=== PATIENT | female | born 1940 | race Caucasian/White ===

== ENCOUNTER 2016-08-07 07:53 | Outpatient (CLI) | payer OTHER ==
--- NOTE | 2016-08-08 07:32 | MAMMO ---
EXAM: Digital screening mammogram HISTORY: Screening mammogram COMPARISON: It mammogram 08/02/2015 and 09/01/2013 FINDINGS: Bilateral CC and MLO views of the breasts were performed digitally and demonstrate fatty breast density (up to 25%). There is no abnormal nodule or calcification. Peripherally calcified oil cyst is noted in the right breast. There is no significant interval change. IMPRESSION: No new or suspicious calcification or nodule RECOMMENDATION: Annual screening mammogram BIRADS category I: Negative
== END 2016-08-07 07:54 | disposition home or self-care (01) ==
LOC: RAD 07:53
PROVIDERS: ATTEND Family Medicine
DX: Z12.31 Encounter for screening mammogram for malignant neoplasm of breast (principal)

== ENCOUNTER 2017-08-07 10:17 | Outpatient (CLI) | payer OTHER | END 2017-08-07 10:18 | disposition home or self-care (01) | LOC: RAD 10:17 | PROVIDERS: ATTEND Family Medicine | DX: Z12.31 Encounter for screening mammogram for malignant neoplasm of breast (principal) | CPT/HCPCS: 77067 ==

== ENCOUNTER 2018-08-13 13:30 | Outpatient (CLI) | payer OTHER ==
--- NOTE | 2018-08-15 10:34 | MAMMO ---
EXAM: Digital screening mammogram with Tomosynthesis HISTORY: Screening COMPARISON: 08/07/2017 FINDINGS: Digital MLO and CC views of the right and left breast were performed. Tomosynthesis was performed. Computer aided detection utilized. There are scattered fibroglandular densities. There i s no evidence for mass, asymmetry, distortion, or suspicious calcifications in either breast. IMPRESSION: 1. No evidence of malignancy in the right or left breast. 2. Annual screening mammogram is recommended in one year. BIRADS category 1, negative examination
== END 2018-08-13 13:31 | disposition home or self-care (01) ==
LOC: RAD 13:30
PROVIDERS: ATTEND Family Medicine
DX: Z12.31 Encounter for screening mammogram for malignant neoplasm of breast (principal)

== ENCOUNTER 2024-11-10 10:34 | Inpatient (IN) ==
[2024-11-10 10:48] VITALS: BMI 28.8
--- NOTE | 2024-11-10 10:49 | ED.PDOC ---
General HPI ED Provider: Dr. DONOVAN EMANUEL MD Chief Complaint: Urinary Problem Stated Complaint: Patient is a 83-year-old female that reported to the emergency department for dysuria. Patient was seen on 10/28/2024 and given cephalexin for a UTI. Patient stated that since that time she thought she started to get better however she started to have increased frequency and dysuria. Patient stated that there has been no hematuria that she knows of. Patient stated that she has also had a fever. She also stated that she just did not feel well due to these urinary problems. Patient stated that she also had a flu shot last week. Patient stated that and route to the emergency department EMS found her to have a temperature of 100.8 Fahrenheit. Patient also stated that she had some nausea. Patient stated that she had an episode of diarrhea. Patient denies any hematochezia, hemoptysis, or melenic stools. Patient denies any shortness of breath, cough, vomiting, headache, or any other acute symptoms not currently mentioned in his HPI previously. Patient's vital signs are currently stable. Patient's GCS is 15. Time Seen by Provider: 11/10/24 10:37 Mode of Arrival: Ambulance Information Source: Patient and EMT Exam Limitations: No limitations Primary Care Provider: BABATUNDE RICHARDSON Nursing and Triage Documentation Reviewed and Agree: Yes Opioid Naive vs. Tolerant What is Opioid Naive?: *Opioid Naive implies the patient is not already taking opioids or not chronically receiving opioids on a daily basis. *PRN dosing is not "usually" associated with tolerance. *Patients are at higher risk of over-sedation and aspiration. What is Opioid Tolerant?: *Opioid Tolerance implies less than the expected response to an opioid. *Acquired tolerance is defined by the patient taking 60mg of oral morphine daily (or equianalgesic dose of another opioid) for 1 week or more. *Often associated with chronic pain. *May take more than usual dose to achieve desired pain control. Review of Systems Review Of Systems Constitutional: Reports No symptoms, Fever and Weakness : Reports Dysuria, Frequency and Pain (Suprapubic tenderness) All Other Systems: Reviewed and Negative PFSH Female Reproductive History Menstrual Hx Hysterectomy: No Hx Tubal Ligation: No Physical Exam Physical Exam Appearance: Reports Well-appearing, No pain distress and Well-nourished Ill-appearing: None Pain Distress: None Eyes: Reports JERE and EOMI ENT: Reports Nose normal and Oropharynx normal Respiratory: Reports Airway patent, Breath sounds clear, Breath sounds equal and Respirations nonlabored Cardiovascular: Reports RRR and Pulses normal GI/: Reports Soft, Bowel sounds normal and Tender (Patient had mild suprapubic tenderness to palpation. Otherwise the rest the abdomen had no tenderness to palpation. Gilmore sign negative, rebound tenderness negative, McBurney point negative.) Musculoskeletal: Reports Normal strength and ROM intact Skin: Reports Warm, Dry and Normal color Neurological: Reports Sensation intact, Motor intact, Alert and Oriented Psychiatric: Reports Affect appropriate and Mood appropriate Physician Progress Note Physician Progress Note: Patient is a 83-year-old female that reported to the emergency department for dysuria. Patient was seen on 10/28/2024 and given cephalexin for a UTI. Patient stated that since that time she thought she started to get better however she started to have increased frequency and dysuria. Patient stated that there has been no hematuria that she knows of. Patient stated that she has also had a fever. She also stated that she just did not feel well due to these urinary problems. Patient stated that she also had a flu shot last week. Patient stated that and route to the emergency department EMS found her to have a temperature of 100.8 Fahrenheit. Patient also stated that she had some nausea. Patient stated that she had an episode of diarrhea. Patient denies any hematochezia, hemoptysis, or melenic stools. Patient denies any shortness of breath, cough, vomiting, headache, or any other acute symptoms not currently mentioned in his HPI previously. Patient's vital signs are currently stable. Patient's GCS is 15. - Will give patient IV normal saline 1 L bolus for dehydration. - Will give the patient IV ondansetron 4 mg once for nausea. - Will order baseline labs and a urinalysis. - Will order blood cultures and lactic acid. - Patient has a large nitrite and 3+ leukocyte Estrace positive UTI found on UA. Will give the patient IV Zosyn 3.75 g. - Due to patient failing outpatient treatment for UTI will contact hospitalist for inpatient admission for urinary tract infection. - EKG shows normal sinus rhythm with minimal voltage criteria for left ventricular hypertrophy. Ventricular rate 70 bpm. Normal axis is noted. No acute STEMI. EKG interpreted by ER physician. - Spoke to the hospitalist Jamel at [facility] and discussed patient's failed outpatient treatment for UTI and current 3+ leukocyte esterase and nitrite positive UTI. Discussed current treatment Zosyn. Also discussed that the patient has had an episode or 2 of diarrhea yesterday and had been on antibiotics previously so I did order C. difficile and other stool cultures just in case the patient is able to give a sample of her diarrhea. Jamel stated that she would check up on these labs however all the rest of the labs are back and patient is ready for observational admission. Hospitalist has agreed to observational admission. Patient is stable at time of admission. Course Course 11/10/24 10:53 11/10/24 10:53 Orders, Labs, Meds: Lab Review 11/10/24 11/10/24 11/10/24 10:45 10:50 10:53 WBC 13.39 H RBC 4.02 L Hgb 12.8 Hct 39.2 MCV 97.5 MCH 31.8 H MCHC 32.7 RDW Coeff of Cindy 12.7 Plt Count 278 Immature Gran % (Auto) 0.3 Neut % (Auto) 90.4 H Lymph % (Auto) 2.6 L [place] % (Auto) 6.4 Eos % (Auto) 0.1 Baso % (Auto) 0.2 Neut # (Auto) 12.1 H Lymph # (Auto) 0.4 L [place] # (Auto) 0.9 Eos # (Auto) 0.0 Baso # (Auto) 0.0 Immature Gran # (Auto) 0.0 Hypochromasia 1+ Anisocytosis 2+ Microcytosis 1+ Shannon Cells 1+ Acanthocytes (Spur) 1+ Sodium 136.9 Potassium 3.54 Chloride 103.8 Carbon Dioxide 26.1 Anion Gap 10.54 BUN 16.4 Creatinine 0.73 Estimated GFR (MDRD) 77.00 BUN/Creatinine Ratio 22.46 Glucose 126.9 H Lactic Acid 1.05 Calcium 9.18 Magnesium 1.75 Total Bilirubin 1.79 H AST 29.7 ALT 18.4 Alkaline Phosphatase 68.9 Troponin I Pending Total Protein 6.51 Albumin 3.96 Globulin 2.55 Albumin/Globulin Ratio 1.55 Urine Color Yellow Urine Clarity Turbid Urine pH 7.0 Ur Specific [place] 1.015 Urine Protein Negative Urine Glucose (UA) Negative Urine Ketones Trace H Urine Blood Trace-intact H Urine Nitrite Positive H Urine Bilirubin Negative Urine Urobilinogen 0.2 Ur Leukocyte Esterase 3+ H Urine Microscopic RBC 2-5 Urine Microscopic WBC Tntc Ur Squamous Epith Cells Not Reportable Urine Bacteria 4+ Influ A Molecular Assay Negative by naat Influ B Molecular Assay Negative by naat SARS CoV-2 RNA Rapid CHACORTA Negative Orders Category Date Time Status EKG-(ED & IP/OBS ONLY) Stat CARDIO 11/10/24 10:37 Ordered IV [ED IV/MEDIPORT/POWERPORT] .ONCE EMERGENCY 11/10/24 10:37 Active BLOOD CULTURE (ED ONLY) Stat LAB 11/10/24 10:53 Received CBC W/ AUTO DIFF Stat LAB 11/10/24 10:53 Completed CDIFF [C. DIFFICILE] ONCE LAB 11/10/24 10:44 Uncollected CMP [COMPREHENSIVE METABOLIC PANEL] Stat LAB 11/10/24 10:53 Results COVID [SARS COV-2 RNA RAPID CHACORTA] Stat LAB 11/10/24 10:50 Completed FLU A & B MOLECULAR [FLU A/B MOLECULAR] Stat LAB 11/10/24 10:50 Completed LACTIC ACID Stat LAB 11/10/24 10:53 Completed MAGNESIUM Stat LAB 11/10/24 10:53 Results OVA AND PARASITES EXAM Stat LAB 11/10/24 10:45 Uncollected RBC MORPHOLOGY Stat LAB 11/10/24 10:53 Completed STOOL CULTURE Stat LAB 11/10/24 Uncollected TROPONIN I Stat LAB 11/10/24 10:53 Results URINALYSIS C & S IF INDICATED Stat LAB 11/10/24 10:45 Completed URINE CULTURE Stat LAB 11/10/24 10:45 Received 0.9 % Sodium Chloride [Saline Flush] Meds 11/10/24 10:37 Active 1 syr IVF PRN PRN Acetaminophen [Tylenol] Meds 11/10/24 11:22 Discontinued 1,000 mg PO ONCE STA Ondansetron [Zofran Odt] Meds 11/10/24 10:49 Discontinued 4 mg PO ONCE STA Piperacillin Sodium/Tazobactam [Zosyn 3.375 gm] 3.375 Meds 11/10/24 11:02 Active gm 0.9 % Sodium Chloride [Sodium Chloride 100Ml] 100 ml IV ONCE Sodium Chloride 0.9% [Sodium Chloride] 1,000 ml Meds 11/10/24 10:37 Active IV BOLUS Medications Generic Name Dose Route Start Last Admin Trade Name Freq PRN Reason Stop Dose Admin Sodium Chloride 1,000 mls @ 1,000 mls/hr 11/10/24 10:37 11/10/24 10:59 Sodium Chloride IV 11/10/24 11:36 1,000 mls/hr BOLUS ONE Administration Piperacillin Sod/Tazobactam 100 mls @ 200 mls/hr 11/10/24 11:02 11/10/24 11:07 Sod 3.375 gm/ Sodium Chloride IV 11/10/24 11:31 200 mls/hr ONCE ONE Administration Sodium Chloride 1 syr 11/10/24 10:37 0.9% Sodium Chloride 10 Ml Disp.Syrin IVF PRN PRN To flush IV Discontinued Medications Generic Name Dose Route Start Last Admin Trade Name Freq PRN Reason Stop Dose Admin Acetaminophen 1,000 mg 11/10/24 11:22 Acetaminophen 500 Mg Tablet PO 11/10/24 11:23 ONCE STA Ondansetron HCl 4 mg 11/10/24 10:49 11/10/24 10:59 Ondansetron Hcl 4 Mg Tab.Rapdis PO 11/10/24 10:50 4 mg ONCE STA Administration Vital Signs: Temp Pulse Resp BP Pulse Ox 11/10/24 10:37 100.5 F H 85 20 164/84 H 95 Discharge Plan Discharge Patient Disposition: PLACED OBSERVATION Discharge Problem: Generalized weakness, Intractable nausea UTI (urinary tract infection) Qualifiers: Urinary tract infection type: acute cystitis Hematuria presence: with hematuria Qualified Code(s): N30.01 - Acute cystitis with hematuria Did you review [place] [facility] [facility] for ALL controlled substances?: Not Applicable ED Provider: DONOVAN EMANUEL Condition: Stable
[2024-11-10 10:55] LABS: GLUCOSE, URINE (UA) Negative (NEGATIVE); LEUKOCYTE ESTERASE ,URINE 3+ (NEGATIVE); URINE, BLOOD Trace-intact (NEGATIVE)
[2024-11-10 10:57] LABS: IMMATURE GRANULOCYTE # (AUTO) 0.0 (0.0-1.0); IMMATURE GRANULOCYTE % (AUTO) 0.3 % (0.0-5.0); RDW COEFFICIENT OF VARIATION 12.7 % (11.6-14.8)
[2024-11-10] MEDS: SODIUM CHLORIDE 1,000 ML IV ONE (10:59)
[2024-11-10] MEDS: ZOFRAN ODT PO STA (10:59)
[2024-11-10 11:01] LABS: URINE WBC, MICROSCOPIC TNTC (0-2)
[2024-11-10] MEDS: ZOSYN 3.375 GM 3.375 GM in SODIUM CHLORIDE 100ML 100 ML IV ONE (11:07)
[2024-11-10 11:12] LABS: CREATININE 0.73 mg/dL (0.60-1.30)
[2024-11-10 11:19] LABS: MOLECULAR FLU A NEGATIVE BY NAAT (NEGATIVE); MOLECULAR FLU B NEGATIVE BY NAAT (NEGATIVE); SARS COV-2 RNA RAPID NAAT NEGATIVE (NEGATIVE)
[2024-11-10] MEDS: TYLENOL PO STA (11:32)
[2024-11-10] MEDS ORDERED: ZOFRAN SDV IVP PRN (13:28)
--- NOTE | 2024-11-10 13:31 | PCM ---
Date of Service Date Seen by Provider: 11/10/24 Time Seen by Provider: Admit Day/Time Admission Date: 11/10/24 Admission Time: 11:20 Reason for Admission Chief Complaint: UTI Hospital Provider Hospital Provider: NORA TORRES, [facility] [place] Primary Care Physician Primary Care Physician: BABATUNDE RICHARDSON History of Present Illness History of Present Illness: 83 yo female with pmh of htn, hld, chronic pain, and nephrectomy presented to the ER with complaints of UTI. Reports she was treated for UTI approximately 2 weeks ago with keflex. Completed course of treatment and did not feel better. Had fever with initial UTI that resolved within 2 days of taking the antibiotic. Fever started again today, has been nauseated, and has been incontinent which is not normal for her. UA in ER suspicious for UTI. White count of 13 and had fever of 100.5. She was given 1L of fluids, zosyn, and zofran. Admitted to med/surg observation. Case Discussed With Case Discussed With: Patient's case was discussed with the ER Physicians, Dr. Jain. [facility] Medical History (Updated 11/10/24 @ 13:34 by NORA TORRES) Hyperlipidemia E78.5 - Hyperlipidemia, unspecified (ICD-10) Hypertension I10 - Essential (primary) hypertension (ICD-10) Surgical History H/O right nephrectomy 2008 @ [place]. Z90.5 - Acquired absence of kidney (ICD-10) Family History Other No known health problems Social History Smoking and tobacco status: Never smoker Allergies Allergies Allergy/AdvReac Type Severity Reaction Status Date / Time hydromorphone HCl (From AdvReac Verified 11/10/24 10:48 Dilaudid) morphine AdvReac Verified 11/10/24 10:48 Current Medications Home Medications Acetaminophen (Acetaminophen 325 Mg Tablet) 650 mg PO Q4H PRN PRN Reason: Mild Pain Amlodipine Besylate (Amlodipine Besylate 5 Mg Tablet) 5 mg PO DAILY [facility] Clonidine (Clonidine Hcl 0.1 Mg Tablet) 0.1 mg PO BID [facility] CEFTRIAXONE/D5W 1 GM PREMIX (Rocephin 1 Gm/50 Ml D5w) 1 gm in 50 mls @ 100 mls/hr IV DAILY [facility] Stop: 11/13/24 12:59 Last Admin: 11/10/24 13:41 Dose: 100 mls/hr Losartan Potassium (Losartan Potassium 25 Mg Tablet) 25 mg PO DAILY [facility] Metoprolol Tartrate (Metoprolol Tartrate 25 Mg Tablet) 25 mg PO DAILY [facility] Multivitamins (Multivitamin 1 Tab) 1 tab PO DAILY [facility] Ondansetron HCl (Ondansetron Hcl/Pf 4 Mg/2 Ml Sdv) 4 mg IVP Q6H PRN PRN Reason: Nausea / Vomiting Pravastatin Sodium (Pravastatin Sodium 20 Mg Tablet) 20 mg PO DAILY [facility] Saccharomyces Boulardii (Saccharomyces Boulardii 250 Mg Capsule) 250 mg PO BID [facility] Sodium Chloride (0.9% Sodium Chloride 10 Ml Disp.Syrin) 1 syr IVF PRN PRN PRN Reason: To flush IV Tramadol HCl (Tramadol Hcl 50 Mg Tablet) 50 mg PO 2XD PRN PRN Reason: Pain amlodipine 5 mg tablet 1 tab PO DAILY 07/21/13 [History Confirmed 11/10/24] clonidine HCl 0.1 mg tablet,extended release,12 hr 1 tab PO BID 07/21/13 [History Confirmed 11/10/24] metoprolol tartrate 50 mg tablet 25 mg PO DAILY 07/21/13 [History Confirmed 11/10/24] pravastatin 20 mg tablet 1 tab PO DAILY 07/21/13 [History Confirmed 11/10/24] losartan 25 mg tablet 25 mg PO DAILY 10/28/24 [History Confirmed 11/10/24] multivitamin (Daily Multi-Vitamin tablet) 1 tab PO DAILY 10/28/24 [History Confirmed 11/10/24] ondansetron 4 mg disintegrating tablet 4 mg PO Q6H PRN nausea and vomiting #30 tabs 10/28/24 [Rx Confirmed 11/10/24] tramadol 50 mg tablet 50 mg PO 2XD PRN pain 10/28/24 [History Confirmed 11/10/24] calcium carb-ergocalciferol (vit D2) 600 mg calcium-200 unit tablet 1 tab PO DAILY 11/10/24 [History Confirmed 11/10/24] Opioid Naive vs. Tolerant Does Patient Take Opioids?: Yes Is Patient Opioid Naive?: No What is Opioid Naive?: *Opioid Naive implies the patient is not already taking opioids or not chronically receiving opioids on a daily basis. *PRN dosing is not "usually" associated with tolerance. *Patients are at higher risk of over-sedation and aspiration. Is Patient Opioid Tolerant?: No What is Opioid Tolerant?: *Opioid Tolerance implies less than the expected response to an opioid. *Acquired tolerance is defined by the patient taking 60mg of oral morphine daily (or equianalgesic dose of another opioid) for 1 week or more. *Often associated with chronic pain. *May take more than usual dose to achieve desired pain control. Review of Systems Constitutional: Reports Fever and Weakness Head: Reports Normocephalic Eyes: Reports No symptoms Ears: Reports No symptoms Nose: Reports No symptoms Mouth: Reports No symptoms Throat: Reports No symptoms Cardiovascular: Reports No symptoms Respiratory: Reports No symptoms Gastrointestinal: Reports Nausea Genitourinary: Reports Incontinence; Denies Dysuria, Frequency, Nocturia, Abnormal Bleeding or Pelvic Pain Musculoskeletal: Reports No symptoms Endocrine: Reports No symptoms Hematology: Reports No symptoms Immunology: Reports No symptoms Neurological: Reports No symptoms Psychiatric: Reports No symptoms Physical examination Most Recent Vital Signs: Most Recent Vital Signs Temperature 98.1 F 11/10/24 12:23 Temperature Source Axillary 11/10/24 10:37 Pulse Rate 64 11/10/24 12:23 Respiratory Rate 16 11/10/24 12:23 Blood Pressure 164/84 H 11/10/24 10:37 Blood Pressure Right Arm 135/51 11/10/24 12:23 Blood Pressure Position Supine 11/10/24 12:23 O2 Sat by Pulse Oximetry 94 L 11/10/24 12:23 Oxygen Delivery Method Room Air 11/10/24 12:23 Height 5 ft 4 in 11/10/24 12:23 Weight 76.1 kg 11/10/24 12:23 Appearance: Positive Alert and Oriented x3 Skin: Positive Rashes (petechial rash to posterior L lower leg), Warm and Good Color HEENT: Positive Normocephalic and PERRLA Neck: Positive Supple and Midline Trachea Chest/Lungs: Positive Symmetrical With Equal Breath Sounds, Clear to Auscultation Bilaterally and Good Air Movement all 4 Lung Haile; Negative Rales, Rhonci or Wheezes Heart: Positive RRR and Pulses Normal GI/: Positive Soft, Nontender, Bowel Sounds Normal and No Distention Musculoskeletal: Positive Not Examined Extremities: Positive Edema (trace to BLE), Intact Peripheral Pulses, Stable Joints Without Laxity and Good ROM in All Joints Neurological: Positive Sensation Intact, Motor intact, Reflexes Intact, Alert, Oriented and Muscle Strength 5/5 in Upper and Lower Extremities Bilaterally Labs This Visit Labs This Visit: Labs This Visit 11/10/24 11/10/24 11/10/24 10:45 10:50 10:53 WBC 13.39 H RBC 4.02 L Hgb 12.8 Hct 39.2 MCV 97.5 MCH 31.8 H MCHC 32.7 RDW Coeff of Cindy 12.7 Plt Count 278 Immature Gran % (Auto) 0.3 Neut % (Auto) 90.4 H Lymph % (Auto) 2.6 L [place] % (Auto) 6.4 Eos % (Auto) 0.1 Baso % (Auto) 0.2 Neut # (Auto) 12.1 H Lymph # (Auto) 0.4 L [place] # (Auto) 0.9 Eos # (Auto) 0.0 Baso # (Auto) 0.0 Immature Gran # (Auto) 0.0 Hypochromasia 1+ Anisocytosis 2+ Microcytosis 1+ Shannon Cells 1+ Acanthocytes (Spur) 1+ Sodium 136.9 Potassium 3.54 Chloride 103.8 Carbon Dioxide 26.1 Anion Gap 10.54 BUN 16.4 Creatinine 0.73 Estimated GFR (MDRD) 77.00 BUN/Creatinine Ratio 22.46 Glucose 126.9 H Lactic Acid 1.05 Calcium 9.18 Magnesium 1.75 Total Bilirubin 1.79 H AST 29.7 ALT 18.4 Alkaline Phosphatase 68.9 Troponin I < 0.012 Total Protein 6.51 Albumin 3.96 Globulin 2.55 Albumin/Globulin Ratio 1.55 Urine Color Yellow Urine Clarity Turbid Urine pH 7.0 Ur Specific [place] 1.015 Urine Protein Negative Urine Glucose (UA) Negative Urine Ketones Trace H Urine Blood Trace-intact H Urine Nitrite Positive H Urine Bilirubin Negative Urine Urobilinogen 0.2 Ur Leukocyte Esterase 3+ H Urine Microscopic RBC 2-5 Urine Microscopic WBC Tntc Ur Squamous Epith Cells Not Reportable Urine Bacteria 4+ Influ A Molecular Assay Negative by naat Influ B Molecular Assay Negative by naat SARS CoV-2 RNA Rapid CHACORTA Negative Review Statement Review Statement: I have independently reviewed and interpreted the labs/EKGs/imaging that were ordered by the ER provider. I have reviewed all outside records that are available currently in our EMR including imaging/notes/labs from previous visits. Plan Plan: 1. UTI, failed outpatient antibiotics - diagnosed with UTI on 10/28 with urine culture growth of E.Coli. Completed course of keflex - sensitive on culture. Will start rocephin and follow current culture 2. HTN - chronic, continue home medications 3. HLD - chronic, continue home medications DVT Prophylaxis: Ambulation Time Spent: Greater than 80 minutes spent with patient, 50% of the time spent with this patient was devoted to counseling and coordination of care. [facility] minutes spent discussing advance care planning. Disposition: Admit to: Med/Surg Observation DNI, CPR only Discussed Plan of Care with Dr. Alvaro Marks Medications Medication Orders: Medications Ordered Category Date Time Status 0.9 % Sodium Chloride [Saline Flush] Meds 11/10/24 10:37 Active 1 syr IVF PRN PRN Acetaminophen [Tylenol] Meds 11/10/24 12:35 Active 650 mg PO Q4H PRN Amlodipine Besylate [Norvasc] Meds 11/11/24 09:00 Ordered 5 mg PO DAILY Ceftriaxone/D5w 1 gm Premix [Rocephin 1 gm/50 ml D5w] Meds 11/10/24 13:00 Active 1 gm in 50 ml IV DAILY Losartan Potassium [Cozaar] Meds 11/11/24 09:00 Ordered 25 mg PO DAILY Metoprolol Tartrate [Lopressor] Meds 11/11/24 09:00 Ordered 25 mg PO DAILY Multivitamin [Multivitamin Tablet] Meds 11/11/24 09:00 Ordered 1 tab PO DAILY Ondansetron HCl/Pf [Zofran Sdv] Meds 11/10/24 13:28 Ordered 4 mg IVP Q6H PRN Pravastatin Sodium [Pravachol] Meds 11/11/24 09:00 Ordered 20 mg PO DAILY Saccharomyces Boulardii [Florastor] Meds 11/10/24 21:00 Active 250 mg PO BID Tramadol HCl [Ultram] Meds 11/10/24 13:29 Ordered 50 mg PO 2XD PRN PAIN Pain clonidine HCl Meds 11/10/24 21:00 Ordered 1 tab PO BID
[2024-11-10] MEDS: ROCEPHIN 1 GM/50 ML D5W 1 GM/50 ML BAG IV SCH (13:41)
[2024-11-10] MEDS: FLORASTOR PO SCH (21:02)
[2024-11-10] MEDS: CATAPRES PO SCH (21:02)
[2024-11-10] MEDS: ULTRAM PO PRN (22:06)
[2024-11-11 05:17] LABS: IMMATURE GRANULOCYTE # (AUTO) 0.0 (0.0-1.0); IMMATURE GRANULOCYTE % (AUTO) 0.2 % (0.0-5.0); RDW COEFFICIENT OF VARIATION 12.9 % (11.6-14.8)
[2024-11-11 05:40] LABS: CREATININE 0.69 mg/dL (0.60-1.30)
[2024-11-11] MEDS: TYLENOL PO PRN (05:49)
[2024-11-11] MEDS: MULTIVITAMIN TABLET PO SCH (08:07)
[2024-11-11] MEDS: K-DUR PO ONE (08:07)
[2024-11-11] MEDS: LOPRESSOR PO SCH (08:07)
[2024-11-11] MEDS: COZAAR PO SCH (08:08)
[2024-11-11] MEDS: NORVASC PO SCH (08:08)
[2024-11-11] MEDS: PRAVACHOL PO SCH (08:08)
[2024-11-11] MEDS ORDERED: LOPRESSOR PO SCH (09:00)
--- NOTE | 2024-11-11 10:42 | PCM.PROG ---
Date/Time Seen Date Seen by Provider: 11/11/24 Time Seen by Provider: 08:45 Provider Provider: NORA TORRES, [facility] Chief Complaint Chief Complaint: UTI Subjective Subjective: Temp 100.2 overnight. Feeling some better today. No further incontinence episodes since starting rocephin. Objective Appearance: Positive No Apparent Distress and Alert and Oriented x3 Chest/Lungs: Positive Symmetrical With Equal Breath Sounds, Clear to Auscultation Bilaterally and Good Air Movement all 4 Lung Haile; Negative Rales, Rhonci or Wheezes Heart: Positive RRR and Pulses Normal GI/: Positive Soft, Nontender, Bowel Sounds Normal and No Distention Musculoskeletal: Positive Not Examined Neurological: Positive Sensation Intact, Motor intact, Reflexes Intact, Alert, Oriented and Muscle Strength 5/5 in Upper and Lower Extremities Bilaterally Additional Findings: Trace edema to BLE, petechial rash improved Vital Signs Vital Signs: Vital Signs: Last 24 Hours 11/10/24 12:23 11/10/24 12:23 11/10/24 13:00 Temperature 98.1 F Temperature Source Pulse Rate 62 Pulse Rate [Apical] 64 Respiratory Rate 18 16 Blood Pressure Blood Pressure Mean Blood Pressure Right Arm 135/51 Blood Pressure Location Blood Pressure Position Supine O2 Sat by Pulse Oximetry 94 L Oxygen Delivery Method Room Air Room Air Room Air Height 5 ft 4 in Weight 76.1 kg Telemetry Type Telemetry Monitoring Telemetry Heart Rate EKG MT Interval EKG QRS Interval Telemetry Strip Reading 11/10/24 13:00 11/10/24 13:36 11/10/24 14:00 Temperature 98.1 F Temperature Source Temporal Artery Scan Pulse Rate 62 Pulse Rate [Apical] Respiratory Rate 18 Blood Pressure 135/51 L Blood Pressure Mean 79 Blood Pressure Right Arm Blood Pressure Location Right Arm Blood Pressure Position Supine O2 Sat by Pulse Oximetry 94 L Oxygen Delivery Method Room Air Room Air Height Weight Telemetry Type Remote Telemetry Telemetry Monitoring Started Telemetry Heart Rate 74 EKG MT Interval 0.18 EKG QRS Interval 0.08 Telemetry Strip Reading NSR 11/10/24 15:00 11/10/24 16:00 11/10/24 17:00 Temperature Temperature Source Pulse Rate Pulse Rate [Apical] Respiratory Rate Blood Pressure Blood Pressure Mean Blood Pressure Right Arm Blood Pressure Location Blood Pressure Position O2 Sat by Pulse Oximetry Oxygen Delivery Method Room Air Room Air Room Air Height Weight Telemetry Type Telemetry Monitoring Telemetry Heart Rate EKG MT Interval EKG QRS Interval Telemetry Strip Reading 11/10/24 17:48 11/10/24 18:00 11/10/24 19:00 Temperature 98.0 F Temperature Source Temporal Artery Scan Pulse Rate 83 Pulse Rate [Apical] Respiratory Rate 16 Blood Pressure 124/66 Blood Pressure Mean 85 Blood Pressure Right Arm Blood Pressure Location Left Arm Blood Pressure Position Supine O2 Sat by Pulse Oximetry 96 Oxygen Delivery Method Room Air Room Air Height Weight Telemetry Type Remote Telemetry Telemetry Monitoring Continues Telemetry Heart Rate 72 EKG MT Interval 0.15 EKG QRS Interval 0.07 Telemetry Strip Reading SR 11/10/24 19:00 11/10/24 20:00 11/10/24 20:00 Temperature Temperature Source Pulse Rate Pulse Rate [Apical] Respiratory Rate Blood Pressure Blood Pressure Mean Blood Pressure Right Arm Blood Pressure Location Blood Pressure Position O2 Sat by Pulse Oximetry Oxygen Delivery Method Room Air Room Air Room Air Height Weight Telemetry Type Telemetry Monitoring Telemetry Heart Rate EKG MT Interval EKG QRS Interval Telemetry Strip Reading 11/10/24 21:00 11/10/24 22:00 11/10/24 22:00 Temperature 100.2 F Temperature Source Temporal Artery Scan Pulse Rate 64 Pulse Rate [Apical] Respiratory Rate 16 Blood Pressure 145/81 H Blood Pressure Mean 102 Blood Pressure Right Arm Blood Pressure Location Right Arm Blood Pressure Position Supine O2 Sat by Pulse Oximetry 96 Oxygen Delivery Method Room Air Room Air Room Air Height Weight Telemetry Type Telemetry Monitoring Telemetry Heart Rate EKG MT Interval EKG QRS Interval Telemetry Strip Reading 11/10/24 23:00 11/11/24 00:00 11/11/24 01:00 Temperature Temperature Source Pulse Rate Pulse Rate [Apical] Respiratory Rate Blood Pressure Blood Pressure Mean Blood Pressure Right Arm Blood Pressure Location Blood Pressure Position O2 Sat by Pulse Oximetry Oxygen Delivery Method Room Air Room Air Room Air Height Weight Telemetry Type Telemetry Monitoring Telemetry Heart Rate EKG MT Interval EKG QRS Interval Telemetry Strip Reading 11/11/24 01:00 11/11/24 02:00 11/11/24 02:00 Temperature 98.8 F Temperature Source Temporal Artery Scan Pulse Rate 54 L Pulse Rate [Apical] Respiratory Rate 16 Blood Pressure 133/66 Blood Pressure Mean 88 Blood Pressure Right Arm Blood Pressure Location Left Arm Blood Pressure Position Supine O2 Sat by Pulse Oximetry 95 Oxygen Delivery Method Room Air Room Air Height Weight Telemetry Type Remote Telemetry Telemetry Monitoring Continues Telemetry Heart Rate 53 L EKG MT Interval 0.16 EKG QRS Interval 0.08 Telemetry Strip Reading SB 11/11/24 03:00 11/11/24 04:00 11/11/24 05:00 Temperature Temperature Source Pulse Rate Pulse Rate [Apical] Respiratory Rate Blood Pressure Blood Pressure Mean Blood Pressure Right Arm Blood Pressure Location Blood Pressure Position O2 Sat by Pulse Oximetry Oxygen Delivery Method Room Air Room Air Room Air Height Weight Telemetry Type Telemetry Monitoring Telemetry Heart Rate EKG MT Interval EKG QRS Interval Telemetry Strip Reading 11/11/24 05:47 11/11/24 06:00 11/11/24 07:00 Temperature 99.1 F Temperature Source Temporal Artery Scan Pulse Rate 56 L Pulse Rate [Apical] Respiratory Rate 16 Blood Pressure 140/63 Blood Pressure Mean 88 Blood Pressure Right Arm Blood Pressure Location Left Arm Blood Pressure Position Supine O2 Sat by Pulse Oximetry 96 Oxygen Delivery Method Room Air Room Air Room Air Height Weight Telemetry Type Telemetry Monitoring Telemetry Heart Rate EKG MT Interval EKG QRS Interval Telemetry Strip Reading 11/11/24 07:00 11/11/24 07:55 11/11/24 08:00 Temperature Temperature Source Pulse Rate Pulse Rate [Apical] Respiratory Rate Blood Pressure Blood Pressure Mean Blood Pressure Right Arm Blood Pressure Location Blood Pressure Position O2 Sat by Pulse Oximetry Oxygen Delivery Method Room Air Room Air Height Weight Telemetry Type Remote Telemetry Telemetry Monitoring Continues Telemetry Heart Rate 43 L EKG MT Interval 0.22 H EKG QRS Interval 0.07 Telemetry Strip Reading SB w/ 1st degree AVB 11/11/24 09:00 11/11/24 10:00 Temperature Temperature Source Pulse Rate Pulse Rate [Apical] Respiratory Rate Blood Pressure Blood Pressure Mean Blood Pressure Right Arm Blood Pressure Location Blood Pressure Position O2 Sat by Pulse Oximetry Oxygen Delivery Method Room Air Room Air Height Weight Telemetry Type Telemetry Monitoring Telemetry Heart Rate EKG MT Interval EKG QRS Interval Telemetry Strip Reading Lab Results Lab Results: Lab Results: Last 24 Hours 11/11/24 11/10/24 11/10/24 05:08 10:53 10:50 WBC 9.26 13.39 H RBC 3.64 L 4.02 L Hgb 11.6 L 12.8 Hct 36.3 L 39.2 MCV 99.7 H 97.5 MCH 31.9 H 31.8 H MCHC 32.0 32.7 RDW Coeff of Cindy 12.9 12.7 Plt Count 185 D 278 Immature Gran % (Auto) 0.2 0.3 Neut % (Auto) 78.5 H 90.4 H Lymph % (Auto) 11.8 2.6 L Alfalfa % (Auto) 9.0 6.4 Eos % (Auto) 0.2 0.1 Baso % (Auto) 0.3 0.2 Neut # (Auto) 7.3 H 12.1 H Lymph # (Auto) 1.1 0.4 L Alfalfa # (Auto) 0.8 0.9 Eos # (Auto) 0.0 0.0 Baso # (Auto) 0.0 0.0 Immature Gran # (Auto) 0.0 0.0 Hypochromasia 1+ Anisocytosis 2+ Microcytosis 1+ Shannon Cells 1+ Acanthocytes (Spur) 1+ Sodium 137.2 136.9 Potassium 3.20 L 3.54 Chloride 104.8 103.8 Carbon Dioxide 30.4 H 26.1 Anion Gap 5.20 10.54 BUN 15.3 16.4 Creatinine 0.69 0.73 Estimated GFR (MDRD) 82.00 77.00 BUN/Creatinine Ratio 22.17 22.46 Glucose 103.9 126.9 H Lactic Acid 1.05 Calcium 8.47 9.18 Magnesium 1.75 Total Bilirubin 0.89 1.79 H AST 26.3 29.7 ALT 18.7 18.4 Alkaline Phosphatase 56.0 68.9 Troponin I < 0.012 Total Protein 5.60 L 6.51 Albumin 3.25 L 3.96 Globulin 2.35 2.55 Albumin/Globulin Ratio 1.38 1.55 Urine Color Urine Clarity Urine pH Ur Specific [place] Urine Protein Urine Glucose (UA) Urine Ketones Urine Blood Urine Nitrite Urine Bilirubin Urine Urobilinogen Ur Leukocyte Esterase Urine Microscopic RBC Urine Microscopic WBC Ur Squamous Epith Cells Urine Bacteria Influ A Molecular Assay Negative by naat Influ B Molecular Assay Negative by naat SARS CoV-2 RNA Rapid CHACORTA Negative 11/10/24 10:45 WBC RBC Hgb Hct MCV MCH MCHC RDW Coeff of Cindy Plt Count Immature Gran % (Auto) Neut % (Auto) Lymph % (Auto) Alfalfa % (Auto) Eos % (Auto) Baso % (Auto) Neut # (Auto) Lymph # (Auto) Alfalfa # (Auto) Eos # (Auto) Baso # (Auto) Immature Gran # (Auto) Hypochromasia Anisocytosis Microcytosis [place] Cells Acanthocytes (Spur) Sodium Potassium Chloride Carbon Dioxide Anion Gap BUN Creatinine Estimated GFR (MDRD) BUN/Creatinine Ratio Glucose Lactic Acid Calcium Magnesium Total Bilirubin AST ALT Alkaline Phosphatase Troponin I Total Protein Albumin Globulin Albumin/Globulin Ratio Urine Color Yellow Urine Clarity Turbid Urine pH 7.0 Ur Specific [place] 1.015 Urine Protein Negative Urine Glucose (UA) Negative Urine Ketones Trace H Urine Blood Trace-intact H Urine Nitrite Positive H Urine Bilirubin Negative Urine Urobilinogen 0.2 Ur Leukocyte Esterase 3+ H Urine Microscopic RBC 2-5 Urine Microscopic WBC Tntc Ur Squamous Epith Cells Not Reportable Urine Bacteria 4+ Influ A Molecular Assay Influ B Molecular Assay SARS CoV-2 RNA Rapid CHACORTA Additional Comments Additional Comments: I have independently reviewed and interpreted the labs/EKGs/imaging ordered during this hospital stay. I have reviewed outside records that are available in our EMR that pertain to medical stay including imaging/notes/labs from previous visits. Active Medications Active Medications: Medications Generic Name Dose Route Start Last Admin Trade Name Freq PRN Reason Stop Dose Admin Acetaminophen 650 mg 11/10/24 12:35 11/11/24 05:49 Acetaminophen 325 Mg Tablet PO 650 mg Q4H PRN Administration Mild Pain Amlodipine Besylate 5 mg 11/11/24 09:00 11/11/24 08:08 Amlodipine Besylate 5 Mg Tablet PO 5 mg DAILY LIZETTE Administration Clonidine 0.1 mg 11/10/24 21:00 11/11/24 08:08 Clonidine Hcl 0.1 Mg Tablet PO 0.1 mg BID LIZETTE Administration CEFTRIAXONE/D5W 1 GM PREMIX 1 gm in 50 mls @ 100 mls/hr 11/10/24 13:00 11/11/24 08:07 Rocephin 1 Gm/50 Ml D5w IV 11/13/24 12:59 100 mls/hr DAILY LIZETTE Administration Losartan Potassium 25 mg 11/11/24 09:00 11/11/24 08:08 Losartan Potassium 25 Mg Tablet PO 25 mg DAILY LIZETTE Administration Metoprolol Tartrate 25 mg 11/11/24 09:00 11/11/24 08:07 Metoprolol Tartrate 25 Mg Tablet PO 25 mg DAILY LIZETTE Administration Multivitamins 1 tab 11/11/24 09:00 11/11/24 08:07 Multivitamin 1 Tab PO 1 tab DAILY LIZETTE Administration Ondansetron HCl 4 mg 11/10/24 13:28 Ondansetron Hcl/Pf 4 Mg/2 Ml Sdv IVP Q6H PRN Nausea / Vomiting Pravastatin Sodium 20 mg 11/11/24 09:00 11/11/24 08:08 Pravastatin Sodium 20 Mg Tablet PO 20 mg DAILY LIZETTE Administration Saccharomyces Boulardii 250 mg 11/10/24 21:00 11/11/24 08:08 Saccharomyces Boulardii 250 Mg Capsule PO 250 mg BID LIZETTE Administration Sodium Chloride 1 syr 11/10/24 10:37 0.9% Sodium Chloride 10 Ml Disp.Syrin IVF PRN PRN To flush IV Tramadol HCl 50 mg 11/10/24 13:29 11/10/24 22:06 Tramadol Hcl 50 Mg Tablet PO 50 mg 2XD PRN Administration Pain Plan Plan: 1. UTI, failed outpatient antibiotics - diagnosed with UTI on 10/28 with urine culture growth of E.Coli. Completed course of keflex - sensitive on culture. Gram negative rods on culture thus far. Continue rocephin and await final report 2. HTN - chronic, continue home medications 3. HLD - chronic, continue home medications DVT Prophylaxis: Ambulation Review Statement Review Statement: I have personally discussed and reviewed the patient's visit/currently labs/im aging/decision making with Dr. Marks, my supervising attending. Greater that 50 minutes spent with patient, 50% of the time spent with this patient was devoted to counseling and coordination of care.
[2024-11-11 17:45] VITALS: RESP 16
[2024-11-12 05:30] LABS: IMMATURE GRANULOCYTE # (AUTO) 0.0 (0.0-1.0); IMMATURE GRANULOCYTE % (AUTO) 0.1 % (0.0-5.0); RDW COEFFICIENT OF VARIATION 13.0 % (11.6-14.8)
[2024-11-12 05:42] LABS: CREATININE 0.57 mg/dL (0.60-1.30)
[2024-11-12 09:34] VITALS: BP 124/75; PULSE 55; TEMP 98
--- NOTE | 2024-11-12 09:40 | DCSUM ---
Admission Date Admission Date: 11/10/24 Discharge Date Discharge Date: 11/12/24 Admission Diagnosis Admission Diagnosis: 1. UTI, failed outpatient antibiotics 2. HTN 3. HLD Discharge Diagnosis Discharge Diagnosis: 1. UTI, failed outpatient antibiotics - Improving 2. HTN - chronic, stable 3. HLD - chronic, stable Hospital Provider Hospital Provider: NORA TORRES, [facility] Primary Care Physician Primary Care Physician: BABATUNDE RICHARDSON Summary of History and Physical Summary of History and Physical: 83 yo female with pmh of htn, hld, chronic pain, and nephrectomy presented to the ER with complaints of UTI. Reports she was treated for UTI approximately 2 weeks ago with keflex. Completed course of treatment and did not feel better. Had fever with initial UTI that resolved within 2 days of taking the antibiotic. Fever started again today, has been nauseated, and has been incontinent which is not normal for her. UA in ER suspicious for UTI. White count of 13 and had fever of 100.5. She was given 1L of fluids, zosyn, and zofran. Admitted to med/surg observation. Hospital Course Subjective: Treated UTI with rocephin 1G Q24H x 3 days. Final report of urine culture revealed E. Coli ESBL negative. Sensitive to current regimen. Had 100.2 fever overnight during first 24 hours of admission. Incontinence has resolved. Has not had any further fever. VSS. Labs within normal limits. D/c with rx for cefpodoxime and florastor. Follow-up with PCP as scheduled. No changes to home medications. Appearance: Pleasant, No Apparent Distress and Alert HEENT: MMM, Supple and No JVD CVS: No Murmur, No Rubs and No Gallop Abdomen: Soft, Non-Tender and No Distention Respiratory: No Dyspnea Extremities: No Edema Vital Signs: Most Recent Vital Signs Temperature 98.1 F 11/12/24 05:12 Temperature Source Temporal Artery Scan 11/12/24 05:12 Temperature Source Axillary 11/10/24 10:37 Pulse Rate 57 L 11/12/24 05:12 Respiratory Rate 16 11/12/24 05:12 Blood Pressure 177/90 H 11/12/24 05:12 Blood Pressure Mean 119 11/12/24 05:12 Blood Pressure Right Arm 135/51 11/10/24 12:23 Blood Pressure Location Right Arm 11/12/24 05:12 Blood Pressure Position Supine 11/12/24 05:12 O2 Sat by Pulse Oximetry 98 11/12/24 05:12 Oxygen Delivery Method Room Air 11/12/24 08:00 Height 5 ft 4 in 11/10/24 12:23 Weight 76.1 kg 11/10/24 12:23 Telemetry Type Remote Telemetry 11/12/24 07:00 Telemetry Monitoring Continues 11/12/24 07:00 Irregular Telemetry Rate (Approximate) 60-70 BPM 11/12/24 07:00 Telemetry Heart Rate 65 11/12/24 07:00 EKG CA Interval 0.23 H 11/12/24 07:00 EKG QRS Interval 0.08 11/12/24 07:00 Telemetry Strip Reading 1st degree block 11/12/24 07:00 Lab Results Last 24 Hours: 11/12/24 05:22 WBC 6.69 RBC 3.76 L Hgb 12.1 Hct 37.6 MCV 100.0 H MCH 32.2 H MCHC 32.2 RDW Coeff of Cindy 13.0 Plt Count 203 Immature Gran % (Auto) 0.1 Neut % (Auto) 68.4 Lymph % (Auto) 16.7 [place] % (Auto) 12.9 H Eos % (Auto) 1.3 Baso % (Auto) 0.6 Neut # (Auto) 4.6 Lymph # (Auto) 1.1 [place] # (Auto) 0.9 Eos # (Auto) 0.1 Baso # (Auto) 0.0 Immature Gran # (Auto) 0.0 Sodium 141.3 Potassium 3.79 Chloride 108.6 H Carbon Dioxide 28.4 Anion Gap 8.09 BUN 16.0 Creatinine 0.57 L Estimated GFR (MDRD) 102.00 BUN/Creatinine Ratio 28.07 Glucose 116.9 H Calcium 8.72 Total Bilirubin 0.47 AST 32.4 ALT 24.8 Alkaline Phosphatase 70.9 Total Protein 5.96 L Albumin 3.39 L Globulin 2.57 Albumin/Globulin Ratio 1.31 Discharge Instructions Discharge Planning: Discharge Planning > 40 minutes If patient is discharged with left ventricular systolic dysfunction: na Discharged with a beta nicho? [] If no, why not? [] Discharged with an román/arb? [] If no, why not? [] Discharge Medications: Medications at Discharge (Home Meds & RX) amlodipine 5 mg tablet 1 tab PO DAILY 07/21/13 clonidine HCl 0.1 mg tablet,extended release,12 hr 1 tab PO BID 07/21/13 metoprolol tartrate 50 mg tablet 25 mg PO DAILY 07/21/13 pravastatin 20 mg tablet 1 tab PO DAILY 07/21/13 losartan 25 mg tablet 25 mg PO DAILY 10/28/24 multivitamin (Daily Multi-Vitamin tablet) 1 tab PO DAILY 10/28/24 tramadol 50 mg tablet 50 mg PO 2XD PRN pain 10/28/24 calcium carb-ergocalciferol (vit D2) 600 mg calcium-200 unit tablet 1 tab PO DAILY 11/10/24 Saccharomyces boulardii 250 mg capsule (Florastor) 250 mg PO BID 4 days #8 caps 11/12/24 cefpodoxime 200 mg tablet 200 mg PO BID 4 days #8 tabs 11/12/24 Discharge Plan Discharge Discharge Orders: Discharge Patient (ONCE); Ordered 11/12/24 Ordered By: MERLE BARROS Activity Restrictions/Additional Instructions: Diagnosis: UTI Diet: Low salt Activity as tolerated. Medications: [facility] * Cefpodoxime 200 mg twice a day for 4 days - start tomorrow (Antibiotic) * Florastor 250 mg twice a day for 4 days - start tomorrow (Probiotic) Follow-up with primary care provider. Instructions: Urinary Tract Infection in Women (GEN) Care Plan Goals: Problem: Febrile Illness Goal: Maintain temperature Within Normal Limits Instructions: Monitor temperature as needed Monitor for adverse effects Medicate as ordered and document effect Problem: Infection Goal #1: No signs/symptoms of infection Instructions: Monitor for sign/symptoms of infection Monitor temperature Goal #2: White blood cell counts Within Normal Limits Instructions: Obtain labs per physician orders Patient Disposition: HOME SELF-CARE Prescriptions: New Saccharomyces boulardii [Florastor] 250 mg Capsule 250 mg PO BID 4 Days Qty: 8 0RF cefpodoxime 200 mg Tablet 200 mg PO BID 4 Days Qty: 8 0RF Rx Instructions: must administer with a meal/food Continued amlodipine 5 MG tablet 1 tab PO DAILY metoprolol tartrate 50 MG tablet 25 mg PO DAILY pravastatin 20 MG tablet 1 tab PO DAILY clonidine HCl 0.1 MG tablet extended release 12 hr 1 tab PO BID tramadol 50 mg tablet 50 mg PO 2XD PRN (Reason: pain) losartan 25 mg tablet 25 mg PO DAILY multivitamin [Daily Multi-Vitamin] Tablet 1 tab PO DAILY calcium carbonate-vitamin D2 600 mg calcium- 200 unit tablet 1 tab PO DAILY Patient Comments: Patient takes a calcium 1,200mg with Vitamin D 1,000mg Discontinued ondansetron 4 mg tablet,disintegrating 4 mg PO Q6H PRN (Reason: nausea and vomiting) Qty: 30 0RF Did you review [place] [employer] for ALL controlled substances?: No Discussed opioids are addictive and Narcan is available by prescription or from pharmacy.: No Condition: Stable Referrals: BABATUNDE RICHARDSON [Primary Care Provider, Family Practice] - 11/18/24 11:15 am Referral Note: this apt may be with Gabriela Flores as Dr. Richardson is out of town.
== END 2024-11-12 10:55 | disposition home or self-care (01) | DRG 690 ==
LOC: ED 10:34 → MEDSURG B 10:34
PROVIDERS: ADMIT Hospitalist; ATTEND Nurse Practitioner Family

== ENCOUNTER 2024-12-20 06:53 | Observation (INO) ==
--- NOTE | 2024-12-20 07:43 | ED.PDOC ---
General [facility] ED Provider: Dr. NERI MOCK MD Chief Complaint: Urinary Problem Stated Complaint: Patient is a 84-year-old female is presenting to the emergency department for evaluation of dysuria and left lower back pain. Patient states that the symptoms have been ongoing for the last 2 months as for the dysuria but that her left lower back pain started yesterday evening. She also has some mild nausea associated with this but no episodes of emesis. She denies any fevers. She took a tramadol which helped significantly with her lower back pain. She notes that she has a history of a right-sided nephrectomy. States that the symptoms are similar to her prior UTIs and that is what made her concerned she might have a urinary tract infection at this time. She denies any fevers. Denies any chills. She states that the pain in the lower back is constant. She has some mild suprapubic discomfort but otherwise no abdominal pain. Denies any generalized weakness. Patient states that the nausea and lower back pain is so mild that she does not wish to have any medication for it at this time. Time Seen by Provider: 12/20/24 07:37 Mode of Arrival: Walk-In Information Source: Patient and Family Exam Limitations: No limitations Primary Care Provider: BABATUNDE RICHARDSON Nursing and Triage Documentation Reviewed and Agree: Yes Opioid Naive vs. Tolerant What is Opioid Naive?: *Opioid Naive implies the patient is not already taking opioids or not chronically receiving opioids on a daily basis. *PRN dosing is not "usually" associated with tolerance. *Patients are at higher risk of over-sedation and aspiration. What is Opioid Tolerant?: *Opioid Tolerance implies less than the expected response to an opioid. *Acquired tolerance is defined by the patient taking 60mg of oral morphine daily (or equianalgesic dose of another opioid) for 1 week or more. *Often associated with chronic pain. *May take more than usual dose to achieve desired pain control. Review of Systems Review Of Systems Constitutional: Denies Chills or Fever Respiratory: Reports No symptoms; Denies Cough Cardiac: Denies Chest pain GI: Reports Abdominal pain (Mild suprapubic discomfort) and Nausea; Denies Abdomen distended, Constipated, Diarrhea or Vomiting : Reports Burning and Dysuria; Denies Flank pain Musculoskeletal: Reports Back pain Skin: Reports No symptoms PFSH [facility] Medical History Hyperlipidemia E78.5 - Hyperlipidemia, unspecified (ICD-10) Hypertension I10 - Essential (primary) hypertension (ICD-10) Family History Other No known health problems Social History Smoking and tobacco status: Never smoker Surgical History H/O right nephrectomy 2009 @ [place]. Z90.5 - Acquired absence of kidney (ICD-10) Female Reproductive History Menstrual Hx Hysterectomy: No Hx Tubal Ligation: No Physical Exam Physical Exam Appearance: Reports Well-appearing and Other (Smiling and conversational) Ill-appearing: None Pain Distress: None Neck: Supple Respiratory: Reports Airway patent, Breath sounds clear and Breath sounds equal Cardiovascular: Reports RRR and Pulses normal GI/: Reports Soft and Tender (Minimal tenderness to palpation in the suprapubic area. There is otherwise no tenderness on examination. No guarding or rigidity. No abdominal distention.) Musculoskeletal: Reports Normal strength and Other (Negative for CVA tenderness bilaterally.) Skin: Reports Warm, Dry and Other (Negative for signs of rash at the reported area of back pain) Neurological: Reports Alert and Oriented Psychiatric: Reports Affect appropriate and Mood appropriate Physician Progress Note Physician Progress Note: Patient is an 84-year-old female is presenting to the emergency department for evaluation of dysuria with associated left lower back pain. Initial differential diagnosis is nephrolithiasis versus UTI complicated by pyelonephritis versus muscular strain. Patient did have a leukocytosis with neutrophil shift which is highly suggestive of underlying infectious etiology, likely UTI given her urinalysis showing clear signs of urinary tract infection. I am not currently concerned for patient having underlying sepsis although there is possibility of pyelonephritis based off the perinephric stranding that was found on her CT without contrast. Should be noted though that this study did not have any findings suggestive of obstructive stone which was my primary reason for obtaining this imaging. Given these findings of possible pyelonephritis as well as the patient's previous outpatient failure for treatment of UTIs, I do believe she should be admitted to the hospital for IV antibiotic administration. Patient was amenable to this plan. Case was discussed with the on-call hospitalist and they accepted the patient to their service. First dose of IV ceftriaxone 1 g was given while here in the emergency department. Course Course 12/20/24 07:45 12/20/24 07:45 Orders, Labs, Meds: Lab Review 12/20/24 07:45 WBC 13.06 H RBC 4.29 Hgb 13.5 Hct 42.4 MCV 98.8 MCH 31.5 H MCHC 31.8 RDW Coeff of Cindy 13.7 Plt Count 223 Immature Gran % (Auto) 0.3 Neut % (Auto) 88.0 H Lymph % (Auto) 5.2 L [place] % (Auto) 6.2 Eos % (Auto) 0.1 Baso % (Auto) 0.2 Neut # (Auto) 11.5 H Lymph # (Auto) 0.7 [place] # (Auto) 0.8 Eos # (Auto) 0.0 Baso # (Auto) 0.0 Immature Gran # (Auto) 0.0 Sodium 136.4 Potassium 4.14 Chloride 105.1 Carbon Dioxide 29.7 Anion Gap 5.74 BUN 18.0 H Creatinine 0.77 Estimated GFR (MDRD) 72.00 BUN/Creatinine Ratio 23.37 Glucose 128.0 H Calcium 9.35 Magnesium 2.19 Total Bilirubin 1.42 H AST 41.1 H ALT 34.9 Alkaline Phosphatase 68.5 Total Protein 6.68 Albumin 3.94 Globulin 2.74 Albumin/Globulin Ratio 1.43 Urine Color Yellow Urine Clarity Clear Urine pH 7.5 Ur Specific [place] 1.020 Urine Protein 3+ H Urine Glucose (UA) Negative Urine Ketones Negative Urine Blood 3+ H Urine Nitrite Negative Urine Bilirubin Negative Urine Urobilinogen 0.2 Ur Leukocyte Esterase 2+ H Urine Microscopic RBC 20-30 Urine Microscopic WBC 10-20 Ur Squamous Epith Cells 2-5 Urine Bacteria Trace Orders Category Date Time Status CBC W/ AUTO DIFF Stat LAB 12/20/24 07:45 Completed CMP [COMPREHENSIVE METABOLIC PANEL] Stat LAB 12/20/24 07:45 Completed MAGNESIUM Stat LAB 12/20/24 07:45 Completed URINALYSIS C & S IF INDICATED Stat LAB 12/20/24 07:45 Completed URINE CULTURE Stat LAB 12/20/24 07:59 Received Ceftriaxone 1 gm Vial [Rocephin 1 gm Vial] Meds 12/20/24 08:14 Discontinued [address] IVP ONCE ONE CT ABDOMEN/PELVIS WO CONTRAST Stat RADS 12/20/24 08:13 Completed Medications Generic Name Dose Route Start Last Admin Trade Name Guera PRN Reason Stop Dose Admin Amlodipine Besylate 5 mg 12/20/24 12:20 12/20/24 13:22 Amlodipine Besylate 5 Mg Tablet PO 5 mg DAILY LIZETTE Administration Calcium/Vitamin D 1 each 12/21/24 09:00 Calcium Carbonate/Vitamin D3 500 Mg/5 Mcg(200iu) 1 Each Tablet PO DAILY LIZETTE Clonidine 0.1 mg 12/20/24 21:00 Clonidine Hcl 0.1 Mg Tablet PO 2XD LIZETTE CEFTRIAXONE/D5W 1 GM PREMIX 1 gm in 50 mls @ 100 mls/hr 12/21/24 09:00 Rocephin 1 Gm/50 Ml D5w IV 12/24/24 08:59 DAILY LIZETTE Sodium Chloride 1,000 mls @ 75 mls/hr 12/20/24 13:00 12/20/24 13:23 Sodium Chloride IV 75 mls/hr .[id number] LIZETTE Administration Losartan Potassium 25 mg 12/20/24 12:20 12/20/24 13:22 Losartan Potassium 25 Mg Tablet PO 25 mg DAILY LIZETTE Administration Metoprolol Tartrate 25 mg 12/20/24 12:20 12/20/24 13:21 Metoprolol Tartrate 50 Mg Tablet PO 25 mg DAILY LIZETTE Administration Multivitamins 1 tab 12/21/24 09:00 Multivitamin 1 Tab PO DAILY LIZETTE Ondansetron HCl 4 mg 12/20/24 12:24 Ondansetron Hcl/Pf 4 Mg/2 Ml Sdv IVP Q6H PRN Nausea / Vomiting Pravastatin Sodium 20 mg 12/20/24 12:20 12/20/24 13:22 Pravastatin Sodium 20 Mg Tablet PO 20 mg DAILY LIZETTE Administration Tramadol HCl 50 mg 12/20/24 12:05 Tramadol Hcl 50 Mg Tablet PO 2XD PRN Pain Discontinued Medications Generic Name Dose Route Start Last Admin Trade Name Guera PRN Reason Stop Dose Admin Ceftriaxone Sodium 1 gm 12/20/24 08:14 12/20/24 08:33 Ceftriaxone 1 Gm Vial IVP 12/20/24 08:15 1 gm ONCE ONE Administration Vital Signs: Temp Pulse Resp BP Pulse Ox O2 Del Method 12/20/24 10:35 99 F 79 17 98 Room Air 12/20/24 06:55 98.8 F 97 18 152/88 H 98 Discharge Plan Discharge Patient Disposition: ADMITTED INPATIENT Discharge Problem: UTI (urinary tract infection) Qualifiers: Urinary tract infection type: acute cystitis Hematuria presence: with hematuria Qualified Code(s): N30.01 - Acute cystitis with hematuria Did you review [place] [employer] for [place] controlled substances?: Not Applicable ED Provider: NERI MOCK
[2024-12-20 07:49] LABS: IMMATURE GRANULOCYTE # (AUTO) 0.0 (0.0-1.0); IMMATURE GRANULOCYTE % (AUTO) 0.3 % (0.0-5.0); RDW COEFFICIENT OF VARIATION 13.7 % (11.6-14.8)
[2024-12-20 07:51] LABS: GLUCOSE, URINE (UA) Negative (NEGATIVE); LEUKOCYTE ESTERASE ,URINE 2+ (NEGATIVE); URINE, BLOOD 3+ (NEGATIVE)
[2024-12-20 07:58] LABS: URINE RBC, MICROSCOPIC 20-30 (0-2)
[2024-12-20 08:00] LABS: CREATININE 0.77 mg/dL (0.60-1.30)
[2024-12-20] MEDS: ROCEPHIN 1 GM VIAL IVP ONE (08:33)
--- NOTE | 2024-12-20 09:04 | CT ---
EXAM: CT ABDOMEN AND PELVIS WITHOUT CONTRAST HISTORY: Screen for obstructing stone on the left. Right nephrectomy. TECHNIQUE: CT acquisition of the abdomen and pelvis from the lower thorax through the pelvis without IV contrast administration. 2-D coronal and sagittal reformatted images were obtained from the axial source images. Oral Contrast: None. CT Dose Reduction Techniques Performed: Yes. COMPARISON: None. FINDINGS: Visualized portions of the lower chest included in this examination of the abdomen and pelvis show a small hiatal hernia. Evaluation of the solid abdominal organs is limited without IV contrast. No obvious liver mass. No biliary tree dilatation. The gallbladder is present. Gallstones can not be excluded by CT. The pancreas, spleen, and adrenal glands have a normal appearance. Patient is status post right nephrectomy. Moderate left hydronephrosis. No visible ureteral stone. Mild left perinephric strandy change. Normal distention of the bladder. Small amount of air in the bladder. The uterus and ovaries have a normal appearance. No visible adnexal mass. [id number] size diverticulum of the mid duodenum. The appendix is either short or mostly absent. Prominent submucosal fat of the proximal colon, potentially sequela of prior episodes of colitis. Colonic diverticulosis. No evidence of diverticulitis. Small fat only containing umbilical hernia. No free air or free fluid. No enlarged lymph nodes are identified. Bone window images show diffuse osteopenia. No significant lytic or sclerotic bone lesions. Mild scoliosis of the lumbar spine, convex to the left. Moderate to severe multilevel degenerative changes in lower lumbar spine. Severe degenerative changes of both hips. IMPRESSION: 1. Moderate left hydronephrosis, with mild left perinephric strandy change. No visible ureteral stone. Consider recently passed stone on the left, infection, versus occult obstructing mass. CT urogram might be helpful for further evaluation. 2. Small bubble of air in the bladder, probably from recent instrumentation. If no recent instrumentation, then consider infection with a gas-forming organism or the less likely possibility of fistula formation. 3. Colonic diverticulosis. No evidence of diverticulitis. 4. Right nephrectomy. All CT scans are performed using dose optimization techniques as appropriate to the performed exam and include at least one of the following: Automated exposure control, adjustment of the mA and/or kV according to size, and the use of iterative reconstruction technique.
[2024-12-20 11:03] VITALS: BMI 27.7
[2024-12-20] MEDS ORDERED: ZOFRAN SDV IVP PRN (12:24)
--- NOTE | 2024-12-20 12:31 | PCM ---
Date of Service Date Seen by Provider: 12/20/24 Time Seen by Provider: 12:00 Admit Day/Time Admission Date: 12/20/24 Admission Time: 11:13 Reason for Admission Chief Complaint: COMPLICATED CYSTITIS Hospital Provider Hospital Provider: JOSE J MORRIS, [facility] Primary Care Physician Primary Care Physician: BABATUNDE RICHARDSON History of Present Illness History of Present Illness: 84 year old female with pmhx of HTN, hyperlipidemia, and right sided nephrectomy presented to the ER with complaints of dysuria, left sided back pain, and mild nausea that started yesterday. Patient took a a dose of tramadol and that eased her back pain. ER workup reveleaved a UA that was positive for UTI and WBC 13. Abd/pelvis CT showed moderate left hydronephrosis with mild left pernephric changes. No visible stone noted. Patient admitted to [facility] due to hx of failed outpatient treatment of UTIs. Patient currently denies back pain or nausea. Continues to have dysuria. Denies any visible blood in her urine. No fever or chills. Case Discussed With Case Discussed With: Patient's case was discussed with the ER Physicians, Dr. Oneill [facility] Medical History Hyperlipidemia E78.5 - Hyperlipidemia, unspecified (ICD-10) Hypertension I10 - Essential (primary) hypertension (ICD-10) Surgical History H/O right nephrectomy 2008 @ [place]. Z90.5 - Acquired absence of kidney (ICD-10) Family History Other No known health problems Social History Smoking and tobacco status: Never smoker Allergies Allergies Allergy/AdvReac Type Severity Reaction Status Date / Time hydromorphone HCl (From AdvReac Intermediate Nausea Verified 12/20/24 07:09 Dilaudid) morphine AdvReac Intermediate Nausea Verified 12/20/24 07:09 Current Medications Home Medications Amlodipine Besylate (Amlodipine Besylate 5 Mg Tablet) 5 mg PO DAILY [facility] Calcium/Vitamin D (Calcium Carbonate/Vitamin D3 500 Mg/5 Mcg(200iu) 1 Each Tablet) 1 each PO DAILY [facility] Clonidine (Clonidine Hcl 0.1 Mg Tablet) 0.1 mg PO 2XD BYRON CEFTRIAXONE/D5W 1 GM PREMIX (Rocephin 1 Gm/50 Ml D5w) 1 gm in 50 mls @ 100 mls/hr IV DAILY BYRON Stop: 12/24/24 08:59 Sodium Chloride (Sodium Chloride) 1,000 mls @ 75 mls/hr IV .[id number] [facility] Losartan Potassium (Losartan Potassium 25 Mg Tablet) 25 mg PO DAILY [facility] Metoprolol Tartrate (Metoprolol Tartrate 50 Mg Tablet) 25 mg PO DAILY [facility] Multivitamins (Multivitamin 1 Tab) 1 tab PO DAILY [facility] Ondansetron HCl (Ondansetron Hcl/Pf 4 Mg/2 Ml Sdv) 4 mg IVP Q6H PRN PRN Reason: Nausea / Vomiting Pravastatin Sodium (Pravastatin Sodium 20 Mg Tablet) 20 mg PO DAILY [facility] Tramadol HCl (Tramadol Hcl 50 Mg Tablet) 50 mg PO 2XD PRN PRN Reason: Pain amlodipine 5 mg tablet 1 tab PO DAILY 07/21/13 [History Confirmed 12/20/24] metoprolol tartrate 50 mg tablet 25 mg PO DAILY 07/21/13 [History Confirmed 12/20/24] pravastatin 20 mg tablet 1 tab PO DAILY 07/21/13 [History Confirmed 12/20/24] losartan 25 mg tablet 25 mg PO DAILY 10/28/24 [History Confirmed 12/20/24] multivitamin (Daily Multi-Vitamin tablet) 1 tab PO DAILY 10/28/24 [History Confirmed 12/20/24] tramadol 50 mg tablet 50 mg PO 2XD PRN pain 10/28/24 [History Confirmed 12/20/24] calcium carb-ergocalciferol (vit D2) 600 mg calcium-200 unit tablet 1 tab PO DAILY 11/10/24 [History Confirmed 12/20/24] clonidine HCl 0.1 mg tablet 0.1 mg PO 2XD 12/20/24 [History Confirmed 12/20/24] Opioid Naive vs. Tolerant Does Patient Take Opioids?: Yes Is Patient Opioid Naive?: No What is Opioid Naive?: *Opioid Naive implies the patient is not already taking opioids or not chronically receiving opioids on a daily basis. *PRN dosing is not "usually" associated with tolerance. *Patients are at higher risk of over-sedation and aspiration. Is Patient Opioid Tolerant?: No What is Opioid Tolerant?: *Opioid Tolerance implies less than the expected response to an opioid. *Acquired tolerance is defined by the patient taking 60mg of oral morphine daily (or equianalgesic dose of another opioid) for 1 week or more. *Often associated with chronic pain. *May take more than usual dose to achieve desired pain control. Review of Systems Constitutional: Denies Fever, Fatigue or Chills Head: Reports Normocephalic and Atraumatic Eyes: Reports No symptoms Ears: Reports No symptoms Nose: Reports No symptoms Mouth: Reports No symptoms Throat: Reports No symptoms Cardiovascular: Reports High Blood Pressure; Denies Chest pain, Chest Pressure or Edema Respiratory: Reports No symptoms; Denies Cough or Shortness of air Gastrointestinal: Reports Nausea; Denies Vomiting, Diarrhea, Constipation or Abdominal pain Genitourinary: Reports Dysuria; Denies Frequency, Nocturia, Hematuria or Flank Pain Musculoskeletal: Reports No symptoms; Denies Muscle Pain Dermatologic: Denies Rashes or Skin Changes Endocrine: Reports No symptoms Hematology: Reports No symptoms Immunology: Reports No symptoms Neurological: Reports No symptoms Psychiatric: Reports No symptoms Physical examination Most Recent Vital Signs: Most Recent Vital Signs Temperature 99 F 12/20/24 10:35 Temperature Source Temporal Artery Scan 12/20/24 10:35 Temperature Source Temporal Artery Scan 12/20/24 06:55 Pulse Rate 79 12/20/24 10:35 Respiratory Rate 17 12/20/24 10:35 Blood Pressure 152/88 H 12/20/24 06:55 Blood Pressure Left Arm 166/83 12/20/24 10:35 Blood Pressure Position Supine 12/20/24 10:35 O2 Sat by Pulse Oximetry 98 12/20/24 10:35 Oxygen Delivery Method Room Air 12/20/24 10:35 Height 5 ft 4 in 12/20/24 10:35 Weight 73.3 kg 12/20/24 10:35 Telemetry Heart Rate 65 11/12/24 07:00 Appearance: Positive Well-appearing, Well-nourished and Alert and Oriented x3 Skin: Positive [place], Warm, Good Turgor and Good Color HEENT: Positive Normocephalic and Atraumatic Neck: Positive Supple; Negative Adenopathy Chest/Lungs: Positive Symmetrical With Equal Breath Sounds, Clear to Auscultation Bilaterally and Good Air Movement all 4 Lung [place]; Negative [place]ales, Rhonci or Wheezes Heart: Positive RRR and Pulses Normal GI/: Positive Soft, Nontender and Bowel Sounds Normal; Negative No Distention, Tender or Mass Musculoskeletal: Positive Not Examined Extremities: Positive Intact Peripheral Pulses and Stable Joints Without Laxity Neurological: Positive Sensation Intact, Alert and Oriented Psychiatric: Positive Oriented x4, Appropriate Mood and Appropriate Affect Labs This Visit Labs This Visit: Labs This Visit 12/20/24 07:45 WBC 13.06 H RBC 4.29 Hgb 13.5 Hct 42.4 MCV 98.8 MCH 31.5 H MCHC 31.8 RDW Coeff of Cindy 13.7 Plt Count 223 Immature Gran % (Auto) 0.3 Neut % (Auto) 88.0 H Lymph % (Auto) 5.2 L [place] % (Auto) 6.2 Eos % (Auto) 0.1 Baso % (Auto) 0.2 Neut # (Auto) 11.5 H Lymph # (Auto) 0.7 [place] # (Auto) 0.8 Eos # (Auto) 0.0 Baso # (Auto) 0.0 Immature Gran # (Auto) 0.0 Sodium 136.4 Potassium 4.14 Chloride 105.1 Carbon Dioxide 29.7 Anion Gap 5.74 BUN 18.0 H Creatinine 0.77 Estimated GFR (MDRD) 72.00 BUN/Creatinine Ratio 23.37 Glucose 128.0 H Calcium 9.35 Magnesium 2.19 Total Bilirubin 1.42 H AST 41.1 H ALT 34.9 Alkaline Phosphatase 68.5 Total Protein 6.68 Albumin 3.94 Globulin 2.74 Albumin/Globulin Ratio 1.43 Urine Color Yellow Urine Clarity Clear Urine pH 7.5 Ur Specific [place] 1.020 Urine Protein 3+ H Urine Glucose (UA) Negative Urine Ketones Negative Urine Blood 3+ H Urine Nitrite Negative Urine Bilirubin Negative Urine Urobilinogen 0.2 Ur Leukocyte Esterase 2+ H Urine Microscopic RBC 20-30 Urine Microscopic WBC 10-20 Ur Squamous Epith Cells 2-5 Urine Bacteria Trace Imaging Imaging: EXAM: CT ABDOMEN AND PELVIS WITHOUT CONTRAST HISTORY: Screen for obstructing stone on the left. Right nephrectomy. TECHNIQUE: CT acquisition of the abdomen and pelvis from the lower thorax through the pelvis without IV contrast administration. 2-D coronal and sagittal reformatted images were obtained from the axial source images. Oral Contrast: None. CT Dose Reduction Techniques Performed: Yes. COMPARISON: None. FINDINGS: Visualized portions of the lower chest included in this examination of the abdomen and pelvis show a small hiatal hernia. Evaluation of the solid abdominal organs is limited without IV contrast. No obvious liver mass. No biliary tree dilatation. The gallbladder is present. Gallstones can not be excluded by CT. The pancreas, spleen, and adrenal glands have a normal appearance. Patient is status post right nephrectomy. Moderate left hydronephrosis. No visible ureteral stone. Mild left perinephric strandy change. Normal distention of the bladder. Small amount of air in the bladder. The uterus and ovaries have a normal appearance. No visible adnexal mass. [id number] size diverticulum of the mid duodenum. The appendix is either short or mostly absent. Prominent submucosal fat of the proximal colon, potentially sequela of prior episodes of colitis. Colonic diverticulosis. No evidence of diverticulitis. Small fat only containing umbilical hernia. No free air or free fluid. No enlarged lymph nodes are identified. Bone window images show diffuse osteopenia. No significant lytic or sclerotic bone lesions. Mild scoliosis of the lumbar spine, convex to the left. Moderate to severe multilevel degenerative changes in lower lumbar spine. Severe degenerative changes of both hips. IMPRESSION: 1. Moderate left hydronephrosis, with mild left perinephric strandy change. No visible ureteral stone. Consider recently passed stone on the left, infection, versus occult obstructing mass. CT urogram might be helpful for further brenda luation. 2. Small bubble of air in the bladder, probably from recent instrumentation. If no recent instrumentation, then consider infection with a gas-forming organism or the less likely possibility of fistula formation. 3. Colonic diverticulosis. No evidence of diverticulitis. 4. Right nephrectomy. All CT scans are performed using dose optimization techniques as appropriate to the performed exam and include at least one of the following: Automated exposure control, adjustment of the mA and/or kV according to size, and the use of iterative reconstruction technique. Review Statement Review Statement: I have independently reviewed and interpreted the labs/EKGs/imaging that were ordered by the ER provider. I have reviewed all outside records that are available currently in our EMR including imaging/notes/labs from previous visits. Plan Plan: Plan: 1. Complicated UTI- awaiting urine culture, Rocephin 1gm IV daily, NS at 75mL/hr 2. Moderate left hydronephrosis- see above, strict I/O 3. HTN- chronic, continue home meds 4. Hyperlipidemia- chronic, continue home meds DVT Prophylaxis: ambulation Time Spent: Greater than 80 minutes spent with patient, 50% of the time spent with this patient was devoted to counseling and coordination of care. [facility] minutes spent discussing advance care planning. Smoking Cessation: N/A Disposition: Home Admit to:[facility] OBS Discussed Plan of Care with Dr. Marks Medications Medication Orders: Medications Ordered Category Date Time Status 1 gm/50 ml IV Daily Byron Meds 12/21/24 09:00 Ordered Ceftriaxone/D5w 1 gm Premix [Rocephin 1 gm/50 ml D5w] 1 gm in 50 ml IV DAILY Amlodipine Besylate [Norvasc] Meds 12/20/24 12:20 Active 5 mg PO DAILY Calcium Carbonate/Vitamin D3 [Calcium 500 + Vit D 5 Mcg Meds 12/21/24 09:00 Active (200 Iu) Tablet] 1 each PO DAILY Clonidine HCl [Catapres] Meds 12/20/24 21:00 Active 0.1 mg PO 2XD Losartan Potassium [Cozaar] Meds 12/20/24 12:20 Active 25 mg PO DAILY Metoprolol Tartrate [Lopressor] Meds 12/20/24 12:20 Active 25 mg PO DAILY Ondansetron HCl/Pf [Zofran Sdv] Meds 12/20/24 12:24 Ordered 4 mg IVP Q6H PRN Pravastatin Sodium [Pravachol] Meds 12/20/24 12:20 Active 20 mg PO DAILY Tramadol HCl [Ultram] Meds 12/20/24 12:05 Active 50 mg PO 2XD PRN PAIN Pain multivitamin [Daily Multi-Vitamin] Meds 12/21/24 09:00 Ordered 1 tab PO DAILY
[2024-12-20] MEDS: LOPRESSOR PO SCH (13:21)
[2024-12-20] MEDS: NORVASC PO SCH (13:22)
[2024-12-20] MEDS: PRAVACHOL PO SCH (13:22)
[2024-12-20] MEDS: COZAAR PO SCH (13:22)
[2024-12-20] MEDS: SODIUM CHLORIDE 1,000 ML IV SCH (13:23)
[2024-12-20] MEDS: ULTRAM PO PRN (18:02)
[2024-12-20] MEDS: CATAPRES PO SCH (20:33)
[2024-12-21 05:30] LABS: IMMATURE GRANULOCYTE # (AUTO) 0.0 (0.0-1.0); IMMATURE GRANULOCYTE % (AUTO) 0.3 % (0.0-5.0); RDW COEFFICIENT OF VARIATION 13.9 % (11.6-14.8)
[2024-12-21 05:46] LABS: CREATININE 0.64 mg/dL (0.60-1.30)
[2024-12-21] MEDS: ROCEPHIN 1 GM/50 ML D5W 1 GM/50 ML BAG IV SCH (08:48)
[2024-12-21] MEDS: CALCIUM 500 + VIT D 5 MCG (200 IU) TABLET PO SCH (08:54)
[2024-12-21] MEDS: MULTIVITAMIN TABLET PO SCH (08:55)
--- NOTE | 2024-12-21 10:42 | PCM.PROG ---
Date/Time Seen Date Seen by Provider: 12/21/24 Time Seen by Provider: 09:30 Provider [facility] Chief Complaint Chief Complaint: COMPLICATED CYSTITIS Subjective Subjective: No complaints or concerns this am. No fever overnight. Objective Appearance: Positive No Apparent Distress and Alert and Oriented x3 Chest/Lungs: Positive Symmetrical With Equal Breath Sounds, Clear to Auscultation Bilaterally and Good Air Movement all 4 Lung Haile; Negative Rales, Rhonci or Wheezes Heart: Positive RRR and Pulses Normal GI/: Positive Soft, Nontender, Bowel Sounds Normal and No Distention Musculoskeletal: Positive Other (mild edema to BLE) Neurological: Positive Sensation Intact, Motor intact, Reflexes Intact, Alert, Oriented and Muscle Strength 5/5 in Upper and Lower Extremities Bilaterally Vital Signs Vital Signs: Vital Signs: Last 24 Hours 12/20/24 13:54 12/20/24 22:00 12/21/24 05:38 Temperature 98.6 F 98.3 F 98.7 F Temperature Source Temporal Artery Scan Temporal Artery Scan Temporal Artery Scan Pulse Rate 76 62 50 L Respiratory Rate 20 16 18 Blood Pressure 130/74 131/68 138/79 Blood Pressure Mean 92 89 98 Blood Pressure Location Left Arm Right Arm Left Arm Blood Pressure Position Supine Supine Supine O2 Sat by Pulse Oximetry 99 96 97 Oxygen Delivery Method Room Air Room Air Room Air Lab Results Lab Results: Lab Results: Last 24 Hours 12/21/24 05:19 WBC 7.29 D RBC 3.72 L Hgb 11.6 L Hct 36.9 L MCV 99.2 H MCH 31.2 H MCHC 31.4 L RDW Coeff of Cindy 13.9 Plt Count 196 Immature Gran % (Auto) 0.3 Neut % (Auto) 69.3 Lymph % (Auto) 18.9 Randall % (Auto) 10.7 H Eos % (Auto) 0.4 Baso % (Auto) 0.4 Neut # (Auto) 5.1 Lymph # (Auto) 1.4 Randall # (Auto) 0.8 Eos # (Auto) 0.0 Baso # (Auto) 0.0 Immature Gran # (Auto) 0.0 Sodium 135.9 Potassium 3.63 Chloride 105.8 Carbon Dioxide 29.3 Anion Gap 4.43 BUN 16.5 Creatinine 0.64 Estimated GFR (MDRD) 89.00 BUN/Creatinine Ratio 25.78 Glucose 98.6 Calcium 8.65 Total Bilirubin 1.29 AST 26.6 ALT 25.9 Alkaline Phosphatase 56.7 Total Protein 5.66 L Albumin 3.24 L Globulin 2.42 Albumin/Globulin Ratio 1.33 Additional Comments Additional Comments: I have independently reviewed and interpreted the labs/EKGs/imaging ordered during this hospital stay. I have reviewed outside records that are available in our EMR that pertain to medical stay including imaging/notes/labs from previous visits. Active Medications Active Medications: Medications Generic Name Dose Route Start Last Admin Trade Name Freq PRN Reason Stop Dose Admin Amlodipine Besylate 5 mg 12/20/24 12:20 12/21/24 08:55 Amlodipine Besylate 5 Mg Tablet PO 5 mg DAILY LIZETTE Administration Calcium/Vitamin D 1 each 12/21/24 09:00 12/21/24 08:54 Calcium Carbonate/Vitamin D3 500 Mg/5 Mcg(200iu) 1 Each Tablet PO 1 each DAILY LIZETTE Administration Clonidine 0.1 mg 12/20/24 21:00 12/21/24 08:55 Clonidine Hcl 0.1 Mg Tablet PO 0.1 mg 2XD LIZETTE Administration CEFTRIAXONE/D5W 1 GM PREMIX 1 gm in 50 mls @ 100 mls/hr 12/21/24 09:00 12/21/24 08:48 Rocephin 1 Gm/50 Ml D5w IV 12/24/24 08:59 100 mls/hr DAILY LIZETTE Administration Sodium Chloride 1,000 mls @ 75 mls/hr 12/20/24 13:00 12/21/24 01:36 Sodium Chloride IV 75 mls/hr .[id number] LIZETTE Administration Losartan Potassium 25 mg 12/20/24 12:20 12/21/24 08:54 Losartan Potassium 25 Mg Tablet PO 25 mg DAILY LIZETTE Administration Metoprolol Tartrate 25 mg 12/20/24 12:20 12/21/24 08:56 Metoprolol Tartrate 50 Mg Tablet PO 25 mg DAILY LIZETTE Administration Multivitamins 1 tab 12/21/24 09:00 12/21/24 08:55 Multivitamin 1 Tab PO 1 tab DAILY LIZETTE Administration Ondansetron HCl 4 mg 12/20/24 12:24 Ondansetron Hcl/Pf 4 Mg/2 Ml Sdv IVP Q6H PRN Nausea / Vomiting Pravastatin Sodium 20 mg 12/20/24 12:20 12/21/24 08:55 Pravastatin Sodium 20 Mg Tablet PO 20 mg DAILY LIZETTE Administration Tramadol HCl 50 mg 12/20/24 12:05 12/20/24 18:02 Tramadol Hcl 50 Mg Tablet PO 50 mg 2XD PRN Administration Pain Plan Plan: 1. Complicated UTI - gram neg rods on urine culture, awaiting final report, continue Rocephin 1gm IV daily, NS at 75mL/hr 2. Moderate left hydronephrosis - see above, strict I/O 3. HTN - chronic, continue home meds 4. Hyperlipidemia - chronic, continue home meds DVT Prophylaxis: Ambulation Review Statement Review Statement: I have personally discussed and reviewed the patient's visit/currently labs/imaging/decision making with Dr. Marks, my supervising attending. Greater that 50 minutes spent with patient, 50% of the time spent with this patient was devoted to counseling and coordination of care.
[2024-12-22 05:41] LABS: IMMATURE GRANULOCYTE # (AUTO) 0.0 (0.0-1.0); IMMATURE GRANULOCYTE % (AUTO) 0.3 % (0.0-5.0); RDW COEFFICIENT OF VARIATION 13.6 % (11.6-14.8)
[2024-12-22 05:54] LABS: CREATININE 0.55 mg/dL (0.60-1.30)
--- NOTE | 2024-12-22 09:49 | DCSUM ---
Admission Date Admission Date: 12/20/24 Discharge Date Discharge Date: 12/22/24 Admission Diagnosis Admission Diagnosis: 1. Complicated UTI 2. Moderate left hydronephrosis Discharge Diagnosis Discharge Diagnosis: 1. Complicated UTI d/t enterobacter - Improving 2. Moderate left hydronephrosis - Renal function stable 3. HTN - chronic, stable 4. Hyperlipidemia - chronic, stable Hospital Provider Hospital Provider: NORA TORRES, [facility] [place] Care Physician Primary Care Physician: BABATUNDE RICHARDSON Summary of History and Physical Summary of History and Physical: 84 year old female with pmhx of HTN, hyperlipidemia, and right sided nephrectomy presented to the ER with complaints of dysuria, left sided back pain, and mild nausea that started yesterday. Patient took a a dose of tramadol and that eased her back pain. ER workup reveleaved a UA that was positive for UTI and WBC 13. Abd/pelvis CT showed moderate left hydronephrosis with mild left pernephric changes. No visible stone noted. Patient admitted to [facility] due to hx of failed outpatient treatment of UTIs. Patient currently denies back pain or cierra sea. Continues to have dysuria. Denies any visible blood in her urine. No fever or chills. Hospital Course Subjective: During stay, patient was treated for complicated UTI with rocephin 1G daily. Urine culture showed growth of gram negative rods with final report of enterobacter clocae complex. Received IVPB dose of levaquin 750 mg today. Rx sent for 6 more days of levaquin 750 mg PO for total of 7 day course. Hydronephrosis present on CT. Received NS@75mL/hr. Renal function remained normal. No fever. Symptoms improved. Discharge home today. Follow-up with PCP. Appearance: Pleasant, No Apparent Distress and Alert HEENT: MMM, Supple and No JVD CVS: No Murmur, No Rubs and No Gallop Abdomen: Soft, Non-Tender and No Distention Respiratory: No Dyspnea Extremities: No Edema Vital Signs: Most Recent Vital Signs Temperature 97.9 F 12/22/24 06:00 Temperature Source Temporal Artery Scan 12/22/24 06:00 Temperature Source Temporal Artery Scan 12/20/24 06:55 Pulse Rate 50 L 12/22/24 06:00 Respiratory Rate 18 12/22/24 06:00 Blood Pressure 146/77 H 12/22/24 06:00 Blood Pressure Mean 100 12/22/24 06:00 Blood Pressure Left Arm 166/83 12/20/24 10:35 Blood Pressure Location Left Arm 12/22/24 06:00 Blood Pressure Position Supine 12/22/24 06:00 O2 Sat by Pulse Oximetry 98 12/22/24 06:00 Oxygen Delivery Method Room Air 12/22/24 06:00 Height 5 ft 4 in 12/20/24 10:35 Weight 73.3 kg 12/20/24 10:35 Telemetry Heart Rate 65 11/12/24 07:00 Lab Results Last 24 Hours: 12/22/24 05:33 WBC 5.85 RBC 3.68 L Hgb 11.8 L Hct 37.1 MCV 100.8 H MCH 32.1 H MCHC 31.8 RDW Coeff of Cindy 13.6 Plt Count 204 Immature Gran % (Auto) 0.3 Neut % (Auto) 65.2 Lymph % (Auto) 22.9 Lamb % (Auto) 9.7 Eos % (Auto) 1.4 Baso % (Auto) 0.5 Neut # (Auto) 3.8 Lymph # (Auto) 1.3 Lamb # (Auto) 0.6 Eos # (Auto) 0.1 Baso # (Auto) 0.0 Immature Gran # (Auto) 0.0 Sodium 136.8 Potassium 3.72 Chloride 109.9 H Carbon Dioxide 24.8 Anion Gap 5.82 BUN 15.3 Creatinine 0.55 L Estimated GFR (MDRD) 106.00 BUN/Creatinine Ratio 27.81 Glucose 98.0 Calcium 8.65 Total Bilirubin 0.94 AST 29.9 ALT 26.0 Alkaline Phosphatase 56.2 Total Protein 5.59 L Albumin 3.18 L Globulin 2.41 Albumin/Globulin Ratio 1.31 Discharge Instructions Discharge Planning: Discharge Planning > 40 minutes If patient is discharged with left ventricular systolic dysfunction: na Discharged with a beta nicho? [] If no, why not? [] Discharged with an román/arb? [] If no, why not? [] Discharge Medications: Medications at Discharge (Home Meds & RX) amlodipine 5 mg tablet 1 tab PO DAILY 07/21/13 metoprolol tartrate 50 mg tablet 25 mg PO DAILY 07/21/13 pravastatin 20 mg tablet 1 tab PO DAILY 07/21/13 losartan 25 mg tablet 25 mg PO DAILY 10/28/24 multivitamin (Daily Multi-Vitamin tablet) 1 tab PO DAILY 10/28/24 tramadol 50 mg tablet 50 mg PO 2XD PRN pain 10/28/24 calcium carb-ergocalciferol (vit D2) 600 mg calcium-200 unit tablet 1 tab PO DAILY 11/10/24 clonidine HCl 0.1 mg tablet 0.1 mg PO 2XD 12/20/24 levofloxacin 750 mg tablet 750 mg PO DAILY 6 days #6 tabs 12/22/24 Discharge Plan Discharge Discharge Orders: Discharge Patient (ONCE); Ordered 12/22/24 Ordered By: MERLE BARROS Activity Restrictions/Additional Instructions: Diagnosis: UTI Diet: Regular Activity as tolerated. Medications: [facility] * Levaquin 750 mg daily for the next 6 days (start tomorrow 12/23/2024) Follow-up with primary care provider. Instructions: Levofloxacin (By mouth), Urinary Tract Infection in Women (GEN) Patient Disposition: HOME WITH FAMILY CARE Prescriptions: New levofloxacin 750 mg Tablet 750 mg PO DAILY 6 Days Qty: 6 0RF Continued amlodipine 5 MG tablet 1 tab PO DAILY metoprolol tartrate 50 MG tablet 25 mg PO DAILY pravastatin 20 MG tablet 1 tab PO DAILY tramadol 50 mg tablet 50 mg PO 2XD PRN (Reason: pain) losartan 25 mg tablet 25 mg PO DAILY multivitamin [Daily Multi-Vitamin] Tablet 1 tab PO DAILY calcium carbonate-vitamin D2 600 mg calcium- 200 unit tablet 1 tab PO DAILY Patient Comments: Patient takes a calcium 1,200mg with Vitamin D 1,000mg clonidine HCl 0.1 mg tablet 0.1 mg PO 2XD Did you review [place] [employer] for ALL controlled substances?: No Discussed opioids are addictive and Narcan is available by prescription or from pharmacy.: No Condition: Fair Referrals: BABATUNDE RICHARDSON [Primary Care Provider, Family Practice] - 12/31/24 10:30 am
[2024-12-22] MEDS: LEVAQUIN 750 MG/150 ML D5W 750 MG/150 ML BAG IV ONE (10:05)
[2024-12-22 10:25] VITALS: BP 130/74; PULSE 85; RESP 16; TEMP 98.9
== END 2024-12-22 12:55 | disposition home or self-care (01) ==
LOC: ED 06:53 → MEDSURG B 10:22 → INTOOBSV 10:52
PROVIDERS: ADMIT Hospitalist; ATTEND Nurse Practitioner Family
DX: E78.5 Hyperlipidemia, unspecified; Z51.81 Encounter for therapeutic drug level monitoring; N13.30 Unspecified hydronephrosis; B96.21 Shiga toxin-producing Escherichia coli [E. coli] [STEC] O157 as the cause of diseases classified elsewhere; Z79.899 Other long term (current) drug therapy; N30.01 Acute cystitis with hematuria; I10 Essential (primary) hypertension